=== PATIENT | female | born 1990 | race Caucasian/White ===

== ENCOUNTER 2016-06-20 13:04 | Emergency (ER) | payer MEDICAID ==
[2016-06-20 13:17] VITALS: BP 124/84
[2016-06-20 14:05] LABS: CHLORIDE,CL 105 mmol/L (101-111); SODIUM,NA 139 mmol/L (135-145)
[2016-06-20] MEDS ORDERED: diphenhydrAMINE 25 MG Tab PO ONE (14:58)
--- NOTE | 2016-06-20 21:57 | ER ---
SUBJECTIVE: The patient is a 25-year-old female, who comes in by ambulance stating that she might have had allergic reaction because she took some tramadol and she did know she was allergic to tramadol and just realized it and now comes in by ambulance. She has no real symptoms as far as I can ascertain. She does not have any shortness of breath, any coughing, any rash. She states she feels lethargic, somewhat slow. She states that she knows tramadol can cause seizures. She did not have seizure. She is afraid she is allergic to it, still unsure why she called an ambulance. She has no chest pain. No syncope, near syncope, headaches. No nausea or vomiting. No other symptoms. She apparently did take 6 tramadol today. She denies any other substance abuse. She does use cigarettes and drinks sports drinks. PAST MEDICAL HISTORY: Significant for asthma, , SAB, ADHD, MRSA. CURRENT MEDICATIONS: Denied. ALLERGIES: She states she is allergic to chocolate, causes airway tightness and latex causes itching. SOCIAL HISTORY: She uses tobacco. Denies alcohol use. Denies drug use. She does use sports drinks and coffee. REVIEW OF SYSTEMS: No shortness of breath, chest pain. No new rashes. No headache, syncope, near syncope, falls, trauma. No abdominal pain. No nausea or vomiting. No bleeding. OBJECTIVE: Vital signs: Stable. She is afebrile. General: She appears worn, somewhat older than stated age but no distress, nontoxic, no respiratory distress. HEENT: Her mucous membranes are moist. Conjunctivae are clear. Pupils are reactive. Mucous membranes moist. Neck: Unremarkable. Chest: Clear. CV: RRR. Good pulses at all 4 extremities. Abdomen: Soft and benign. Back: No CVAT. Neuro: No focal neurologic changes. LABORATORY DATA: Baseline labs were quite unremarkable including CBC, CMP. Drug screen was positive for tricyclic antidepressants. Otherwise negative. Urinalysis was clear. No signs of infection. EMERGENCY ROOM COURSE: She remained stable, in no distress. Nontoxic, was ready for discharge. ASSESSMENT: Drug reaction-nonspecific, reportedly from tramadol although no specific reactions noted. PLAN: Discharge to home. She remained stable, keep hydrate, take tramadol any longer if you have reactions to it. Avoid any other medicines that you have reactions to. Stay with family, see PCP in followup, and return for emergent issues. [facility] /[id number]
== END 2016-06-20 15:04 | disposition home or self-care (01) ==
LOC: DL.ED 13:04
DX: R53.83 Other fatigue (principal); T40.4X5A Adverse effect of other synthetic narcotics, initial encounter; J45.909 Unspecified asthma, uncomplicated; F17.210 Nicotine dependence, cigarettes, uncomplicated; Z91.018 Allergy to other foods; Z91.040 Latex allergy status
CPT/HCPCS: 36415; 80053; 80305; 81001; 85025; 99282; 99283

== ENCOUNTER 2016-10-23 17:43 | Emergency (ER) | payer MEDICAID ==
[2016-10-23 17:54] VITALS: BP 137/82
[2016-10-23] MEDS ORDERED: Dexamethasone 4 MG/ML SDV IVPUSH ONE (18:15)
[2016-10-23] MEDS ORDERED: Ketorolac 30 MG/ML SDV IVPUSH ONE (18:15)
--- NOTE | 2016-10-23 18:19 | EDM.PDOC ---
<Natacha Maxwell - Last Filed: 10/23/16 18:39> ED HPI GENERAL MEDICAL PROBLEM - General Chief Complaint: General Stated Complaint: FACE IS SWOLLEN, TEETH PROBLEMS, [id number] Time Seen by Provider: 10/23/16 18:15 Source of Information: Reports: Patient History Limitations: Reports: No Limitations - History of Present Illness INITIAL COMMENTS - FREE TEXT/NARRATIVE: 25 yo female presents with swelling and pain to left face. States that she started having mild pain last night with mild swelling but today it has spread and her left eye is swollen closed. denies pain elsewhere. States that she has dental caries and dentist refused to see her until insurance approval. Onset: Gradual Onset Date: 10/22/16 Duration: Getting Worse Location: Reports: Face Quality: Reports: Ache Severity: Moderate Improves with: Reports: None Worsens with: Reports: None Associated Symptoms: Reports: No Other Symptoms Left Face Pain Score (Numeric/FACES): 10 - Related Data Allergies Allergy/AdvReac Type Severity Reaction Status Date / Time chocolate flavor Allergy Airway Verified 10/23/16 17:50 Tightness Latex, Natural Rubber Allergy Itching Verified 10/23/16 17:50 Home Meds: Home Meds . [No Known Home Meds] 04/09/16 [History] Past Medical History - Past Health History Medical/Surgical History: Denies Medical/Surgical History HEENT History: Reports: None Cardiovascular History: Reports: None Respiratory History: Reports: Asthma Gastrointestinal History: Reports: None Genitourinary History: Reports: None RECEPTION History: Reports: Spontaneous Other OB/BYN History: possibly Musculoskeletal History: Reports: None Neurological History: Reports: Seizure Psychiatric History: Reports: ADHD Endocrine/Metabolic History: Reports: None Hematologic History: Reports: None Immunologic History: Reports: None Oncologic (Cancer) History: Reports: None Other Dermatologic History: patient has discolorateion to shoulders and chest. patient states she gets it when and someone told her it was a kind of fungus - Infectious Disease History Infectious Disease History: Reports: MRSA - Past Surgical History Head Surgeries/Procedures: Reports: None Female Surgical History: Reports: Section Social & Family History - Family History Family Medical History: Noncontributory - Tobacco Use Smoking Status *Q: Current Every Day Smoker Years of Tobacco use: 8 Packs/Tins Daily: 0.5 Used Tobacco, but Quit: No Second Hand Smoke Exposure: Yes - Caffeine Use Caffeine Use: Reports: Coffee, Soda, Tea - Recreational Drug Use Recreational Drug Use: No Drug Use in Last 12 Months: No ED ROS GENERAL - Review of Systems Review Of Systems: ROS reveals no pertinent complaints other than HPI. ED EXAM, GENERAL - Physical Exam Exam: See Below Exam Limited By: No Limitations General Appearance: Alert, WD/WN, No Apparent Distress Eye Exam: Left Eye: Periorbital Changes (edema), Bilateral Eye: EOMI, PERRL Nose: Normal Inspection, Normal Mucosa, No Blood Throat/Mouth: Normal Lips, Normal Gums, Normal Oropharynx, Normal Voice, No Airway Compromise (Diffuse dental caries and fractured teeth. ) Head: Facial Swelling (to left side of face) Neck: Normal Inspection, Supple, Non-Tender, Full Range of Motion, Lymphadenopathy (L) Respiratory/Chest: No Respiratory Distress, Lungs Clear, Normal Breath Sounds, No Accessory Muscle Use, Chest Non-Tender Cardiovascular: Normal Peripheral Pulses, Regular Rate, Rhythm, No Edema, No Gallop, No JVD, No Murmur, No Rub Neurological: Alert, Oriented, CN II-XII Intact, Normal Cognition, Normal Gait, Normal Reflexes, No Motor/Sensory Deficits Skin Exam: Warm, Dry, Intact, Normal Color, No Rash Course - Vital Signs Last Recorded V/S: Last Vital Signs Temp 36.9 C 10/23/16 17:53 Pulse 100 10/23/16 17:53 Resp 20 10/23/16 17:53 BP 137/82 10/23/16 17:53 Pulse Ox 99 10/23/16 17:53 - Orders/Labs/Meds Orders: Active Orders 24 hr Category Date Time Status Max Facial Sinus w Cont [CT] Urgent Exams 10/23/16 18:14 Taken Sodium Chloride 0.9% [Saline Flush] Med 10/23/16 18:15 Active 10 ml FLUSH ASDIRECTED PRN Saline Lock Insert [OM.PC] Stat Oth 10/23/16 18:15 Ordered Medication Orders Sodium Chloride (Saline Flush) 10 ml FLUSH ASDIRECTED PRN PRN Reason: Keep Vein Open Last Admin: 10/23/16 19:21 Dose: 10 ml Admin: 10/23/16 18:33 Dose: 10 ml Labs: Laboratory Tests 10/23/16 10/23/16 10/23/16 Range/Units 18:24 18:24 18:24 WBC 10.2 H (5.0-10.0) 10^3/uL RBC 4.33 (4.2-5.4) 10^6/uL Hgb 12.1 (12.0-16.0) g/dL Hct 37.1 (37.0-47.0) % MCV 85.7 (80-100) fL MCH 27.9 (27.0-34.0) pg MCHC 32.6 L (33.0-35.0) g/dL Plt Count 220 (150-450) 10^3/uL Neut % (Auto) 77.9 H (42.2-75.2) % Lymph % (Auto) 17.1 L (20.5-50.1) % [place] % (Auto) 3.4 (2-8) % Eos % (Auto) 1.4 (1.0-3.0) % Baso % (Auto) 0.2 (0.0-1.0) % Sodium 140 (135-145) mmol/L Potassium 4.5 (3.6-5.0) mmol/L Chloride 105 (101-111) mmol/L Carbon Dioxide 24.0 (21.0-31.0) mmol/L Anion Gap 15.5 BUN 6 L (7-18) mg/dL Creatinine 0.7 (0.6-1.3) mg/dL Est Cr Clr Drug Dosing 93.51 mL/min Estimated GFR (MDRD) > 60 Glucose 95 (74-105) mg/dL Calcium 9.4 (8.4-10.2) mg/dl C-Reactive Protein 2.5 H (0.0-1.3) mg/dL Meds: Medications Generic Name Dose Route Start Last Admin Trade Name Freq PRN Reason Stop Dose Admin Sodium Chloride 10 ml 10/23/16 18:15 10/23/16 19:21 Saline Flush FLUSH 10 ml ASDIRECTED PRN Administration Keep Vein Open Discontinued Medications Generic Name Dose Route Start Last Admin Trade Name Freq PRN Reason Stop Dose Admin Dexamethasone 10 mg 10/23/16 18:15 10/23/16 18:35 Dexamethasone IVPUSH 10/23/16 18:16 10 mg ONETIME ONE Administration Clindamycin Phosphate 900 mg/ 106 mls @ 200 mls/hr 10/23/16 19:12 10/23/16 19 :22 Sodium Chloride IV 10/23/16 19:43 200 mls/hr ONETIME ONE Administration Iopamidol 100 ml 10/23/16 18:36 10/23/16 19:08 Isovue-300 (61%) IVPUSH 10/23/16 18:37 100 ml ONETIME ONE Administration Ketorolac Tromethamine 30 mg 10/23/16 18:15 10/23/16 18:32 Toradol IVPUSH 10/23/16 18:16 30 mg ONETIME ONE Administration Morphine Sulfate 2 mg 10/23/16 19:10 10/23/16 19:18 Morphine IVPUSH 10/23/16 19:11 2 mg ONETIME ONE Administration Ondansetron HCl 4 mg 10/23/16 19:10 10/23/16 19:20 Zofran IV 10/23/16 19:11 4 mg ONETIME ONE Administration Departure - Departure Disposition: Home, Self-Care 01 Clinical Impression: Tooth abscess, Facial cellulitis - Discharge Information Instructions: Dental Abscess, [id number] Referrals: PCP,None [Ordering Only Provider] - Forms: ED Department Discharge Additional Instructions: 1) see DENTIST 2) avoid sodas, candies 3) have jello, rx given; clindamycin 150mg qid x 40 vicodin 5/325mg tid prn x 12 <Raul Ortiz - Last Filed: 10/23/16 19:51> Course - Re-Assessments/Exams Free Text/Narrative Re-Assessment/Exam: 10/23/16 19:49 results discussed with pt. Departure - Departure Time of Disposition: 19:51 Condition: Good
[2016-10-23] MEDS: Sodium Chloride 0.9% 10 ML Syringe FLUSH PRN ×2 (18:33→19:21)
[2016-10-23] MEDS ORDERED: Iopamidol 612 MG/ML 100 ML Bottle IVPUSH ONE (18:36)
[2016-10-23 18:51] LABS: CHLORIDE,CL 105 mmol/L (101-111); SODIUM,NA 140 mmol/L (135-145)
[2016-10-23] MEDS ORDERED: Ondansetron 4 MG/2 ML SDV IV ONE (19:10)
[2016-10-23] MEDS ORDERED: Morphine 2 MG/ML Syringe IVPUSH ONE (19:10)
[2016-10-23] MEDS ORDERED: Clindamycin Phosphate 900 MG in Sodium Chloride 0.9% 100 ML IV ONE (19:12)
[2016-10-23] MEDS ORDERED: Acetaminophen/HYDROcodone 325-10 MG Tab PO ONE (19:50)
[2016-10-23] MEDS ORDERED: Acetaminophen/HYDROcodone 325-10 MG Tab ONE (19:50)
== END 2016-10-23 20:16 | disposition home or self-care (01) ==
LOC: DL.ED 17:43
DX: L03.211 Cellulitis of face (principal); K04.7 Periapical abscess without sinus; J45.909 Unspecified asthma, uncomplicated; F17.210 Nicotine dependence, cigarettes, uncomplicated; Z91.018 Allergy to other foods; Z91.040 Latex allergy status
CPT/HCPCS: 36415; 70487; 80048; 85025; 86140; 96365; 96375; 99283; J1100; J1885; J2270; J2405; J7050; Q9967; A9270-GY; S0077

== ENCOUNTER 2022-04-25 10:17 | Emergency (ER) | payer MEDICAID ==
[2022-04-25 10:37] VITALS: BP 125/76; PULSE 101
[2022-04-25 10:53] LABS: AMPHETAMINES,URINE NEGATIVE (NEGATIVE); BARBITURATES,URINE NEGATIVE (NEGATIVE); BENZODIAZEPINE,URINE NEGATIVE (NEGATIVE); MDMA (ECSTASY), URINE NEGATIVE (NEGATIVE); METHADONE,URINE NEGATIVE (NEGATIVE); METHAMPHETAMINES,URINE NEGATIVE (NEGATIVE); OPIATES,URINE NEGATIVE (NEGATIVE); OXYCODONE,URINE NEGATIVE (NEGATIVE); PHENCYCLIDINE,URINE NEGATIVE (NEGATIVE); TCA,URINE NEGATIVE (NEGATIVE)
[2022-04-25 11:19] LABS: CORONAVIRUS COVID-19 NAA NEGATIVE (NEGATIVE)
== END 2022-04-25 11:40 | disposition home or self-care (01) ==
LOC: DL.ED 10:17
DX: J06.9 Acute upper respiratory infection, unspecified (principal); Z91.040 Latex allergy status; Z91.018 Allergy to other foods; Z79.899 Other long term (current) drug therapy; Z90.710 Acquired absence of both cervix and uterus; Z20.822 Contact with and (suspected) exposure to COVID-19
CPT/HCPCS: 0240U; 80305; 99283